=== PATIENT | male | born 1995 | race Hispanic/Latino ===

== ENCOUNTER 2022-08-27 04:41 | Emergency (ER) | payer OTHER, SELFPAY ==
[2022-08-27 04:42] VITALS: BP 127/97; PULSE 107; RESP 18; TEMP 36.1; O2SAT 97; BMI 43.0
[2022-08-27 05:29] LABS: Absolute Lymphocyte Count 2.73 X10^3/uL (0.83-4.51); Absolute Neutrophil Count 8.3 X10^3/uL (2.0-7.7); Basophil# 0.05 X10^3/uL; Basophil% 0.4 % (0-1); Eosinophil# 0.36 X10^3/uL; Hematocrit 47.5 % (40-54); Hemoglobin 16.4 g/dL (13.0-16.5); Lymphocyte # 2.73 X10^3/ul (0.83-4.51); Lymphocyte % 22.4 % (19-41); Mean Corp Hgb Conc 34.5 g/dL (32-36); Mean Corpuscular Hgb 29.7 pg (27.0-32.0); Mean Corpuscular Volume 86.1 fL (80-94); Mean Platelet Vol. 10.3 fl (6.2-12.0); Monocyte# 0.68 X10^3/uL; Monocyte% 5.6 % (0-10); NRBC Flagged by Analyzer 0 % (0-5); Neutrophil # 8.33 X10^3/uL (2.7-7.7); Neutrophil % 68.2 % (47-70); Platelet Count 287 K/mm3 (150-450); RBC Distribution Width CV 12.2 % (11.6-14.6); RBC Distribution Width SD 38.5 fl (35.1-43.9); Red Blood Count 5.52 M/mm3 (4.6-6.2); White Blood Count 12.2 K/mm3 (4.4-11.0)
--- NOTE | 2022-08-27 05:39 | EX.ED.DYSGE1 ---
HPI History of Present Illness Chief Complaint: Abd Pain Narrative Narrative: Patient is a 26-year-old male who is from [place] and then visiting his family. He states he arrived 3 days ago and was doing well. He ate Thanksgiving dinner and then a few hours later began with generalized abdominal discomfort. He states he had loose stool which has progressed to clear watery diarrhea. He does report a past history of a bacterial intestinal infection a few years ago which needed hospitalized for. 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 He states that he cannot get the diarrhea/loose stool under control and he also has concern for repeat infection as the symptoms remind him of the time he was hospitalized and therefore comes in for evaluation. He reports he has had an EGD and colonoscopy and denies any diagnosis of ulcerative colitis or Crohn's disease [facility] Medical History Fatty liver Rotator cuff arthropathy of right shoulder Home Medications dicyclomine 20 mg tablet 20 mg PO 4X/DAY PRN Abdominal bloating/spasm 7 days #28 tabs 08/27/22 [Rx Last Taken Unknown] diphenoxylate-atropine 2.5 mg-0.025 mg tablet (Lomotil) 1 tab PO 4X/DAY PRN PRN diarrhea 5 days #20 tabs 08/27/22 [Rx Last Taken Unknown] liraglutide (weight loss) 3 mg/0.5 mL (18 mg/3 mL) subcut pen injector (Saxenda) 3 mg subcut DAILY 08/27/22 [History Last Taken Unknown] ondansetron 4 mg disintegrating tablet 4 mg PO TID PRN PRN nausea and vomiting #21 tabs 08/27/22 [Rx Last Taken Unknown] Allergy/AdvReac Type Severity Reaction Status Date / Time No Known Allergies Allergy Verified 08/27/22 04:45 Surgical History (Updated 08/27/22 @ 04:49 by Sravanthi Dodson) H/O left knee surgery Social History Smoking Status: Former smoker ROS ROS ED Constitutional Constitutional ED: Denies chills or fever(s) ENT ENT ED: Denies sore throat Cardiovascular Cardiovascular: Denies chest pain Respiratory/Chest Respiratory/Chest: Denies cough or dyspnea Gastrointestinal Gastrointestinal: Reports abdominal pain, diarrhea and nausea; Denies vomiting Genitourinary Genitourinary ED: Denies dysuria Musculoskeletal Musculoskeletal: Reports myalgias Integumentary Denies rash Neurologic Neurologic: Denies headache(s) Hematologic/Lymphatic Hematologic/Lymphatic: Denies easy bleeding or easy bruising EXAM Physical Exam Const Vital Signs: 08/27/22 04:42 Temperature 97.0 F L Temperature Source Temporal Pulse Rate 107 H Respiratory Rate 18 Blood Pressure 127/97 H Blood Pressure Mean 107 Pulse Ox 97 Oxygen Delivery Method Room Air Positive well nourished, well developed and obese General Appearance ED: well developed Nutritional Appearance: obese HEENT Reports dry mucous membranes HEENT Narrative: Mucous membranes are slightly dry and tacky. No secondary changes in the posterior pharynx to suggest infection Mouth ED: Yes dry mucous membranes Mouth: dry mucous membranes Eyes PERRL and EOMs intact bilaterally General Eye ED: Negative for scleral icterus Neck supple Resp normal respiratory effort and clear to auscultation bilaterally Cardio regular rate and regular rhythm Rate: other Other Details: Radial pulses are +2-4 bilaterally are equal and symmetric GI non-distended GI Narrative: As many as soft and nondistended with hyperactive bowel sounds. There is mild diffuse pain on palpation without voluntary guarding or rigidity. No pulsatile mass or fluid wave. No increased tympany Auscultation: hyperactive bowel sounds Palpation: soft Extremity normal to inspection Neuro oriented x3 and CN's II-XII intact bilaterally Sensorium / Orientation: alert Psych mental status grossly normal Skin no rashes or lesions noted and skin turgor normal General Skin Exam: Negative for jaundice MDM MDM MDM Narrative Medical decision making narrative: Patient presented to the ER afebrile with a soft nonsurgical abdomen. Therefore I felt no need for emergent CT scan. Based on his symptoms I feel this is a viral gastroenteritis and will check for influenza and COVID as a cause as well as for electrolyte derangements and acute kidney injury based on his recurrent watery diarrhea. Lab work shows slight elevation to the white blood cell count as well as CRP consistent with a pro inflammatory response. However there is no severe electrolyte derangement or elevation to his creatinine to suggest RADHA. Liver enzymes are only slightly up and he does have a history of Rosenberg and his lipase is normal going against pancreatitis as cause of his symptoms. Patient was hydrated and given Lomotil and Bentyl and Toradol and reported feeling better. On reevaluation his abdomen remains soft and nonsurgical. Because of his previous admission for bacterial intestinal infection a stool sample was obtained. That will take multiple hours to result. At this time as his labs and vitals do not suggest systemic infection/septicemia and patient's had improvement of symptoms in the ER do not feel there is need to hold onto him until those result. Patient was informed that he will be notified if is positive for bacterial infection but you also have access to it on his outpatient MyChart. Therefore this time as patient's been rehydrated there is no signs of septicemia or acute kidney injury and his abdomen is soft and nonsurgical he can be treated symptomatically and discharged home Lab Data Attestation: I reviewed the patient's lab results. Labs: Laboratory Results - last 24 hr 08/27/22 08/27/22 05:25 05:25 WBC 12.2 H RBC 5.52 Hgb 16.4 Hct 47.5 MCV 86.1 MCH 29.7 MCHC 34.5 RDW Std Deviation 38.5 RDW Coeff of Hai 12.2 Plt Count 287 MPV 10.3 Immature Gran % (Auto) 0.400 Neut % (Auto) 68.2 Lymph % (Auto) 22.4 Pitt % (Auto) 5.6 Eos % (Auto) 3.0 Baso % (Auto) 0.4 Absolute Neuts (auto) 8.3 H Absolute Lymphs (auto) 2.73 Nucleated RBC % 0 Sodium 140 Potassium 4.0 Chloride 109 H Carbon Dioxide 26.0 Anion Gap 5 BUN 14 Creatinine 1.07 Estim Creat Clear Calc 116.84 Est GFR (MDRD) Af Amer 108 Est GFR (MDRD) Non-Af 90 BUN/Creatinine Ratio 13.1 Glucose 99 Calcium 8.8 Magnesium 2.1 Total Bilirubin 1.10 H Direct Bilirubin 0.17 AST 45 H ALT 127 H Alkaline Phosphatase 47 C-React Prot Ext Range 3.84 H Total Protein 7.9 Albumin 4.1 Globulin 3.8 Lipase 123 Discharge Plan Triage Chief Complaint: Abd Pain ED Provider: Raj Webb Dx/Rx/DC Orders Clinical Impression: Diarrhea, Mild dehydration, ROSENBERG (nonalcoholic steatohepatitis) Instructions: ED Dehydration (Adult), ED Diarrhea, Unknown Cause Prescriptions: New dicyclomine 20 mg tablet 20 mg PO 4X/DAY PRN (Reason: Abdominal bloating/spasm) 7 Days Qty: 28 0RF diphenoxylate-atropine [Lomotil] 2.5-0.025 mg tablet 1 tab PO 4X/DAY PRN PRN (Reason: diarrhea) 5 Days Qty: 20 0RF ondansetron 4 mg tablet,disintegrating 4 mg PO TID PRN PRN (Reason: nausea and vomiting) Qty: 21 0RF No Action Saxenda 3 mg/0.5 mL (18 mg/3 mL) Pen Injector 3 mg SUBCUT DAILY Primary Care Provider: Care Physician,No Primary Referrals: Stella Roberts MD [Med Staff - Manufacturing Development Engineer] - NOT,DEFINED [Non-Staff] - Activity Restrictions/Additional Instructions: Your exam and work-up today is consistent with mild dehydration and I feel that the symptoms abdominal pain/bloating with loose stool/diarrhea is related to a viral intestinal infection which is typically self-limited and will resolve in 3 to 7 days. Please keep yourself well-hydrated and check your MyChart to see if your stool study shows a bacterial cause. You should also be notified from the hospital if your test is positive. If you have worsening symptoms or any further concerns return for repeat evaluation. Disposition Disposition: Home, Self Care
[2022-08-27] MEDS: 0.9% Normal Saline 1,000 ML 999 ML IV (05:49)
[2022-08-27] MEDS: Dicyclomine 20 MG/2 ML Vial IM (05:49)
[2022-08-27] MEDS: Ketorolac 30 MG/ML Syringe IV (05:49)
[2022-08-27] MEDS: Diphenoxylate/Atrop 1 Tablet 2 TABLET PO (05:49)
[2022-08-27 05:56] LABS: AST(SGOT) 45 U/L (15-37); Alanine Aminotransfer ALT/SGPT 127 U/L (16-61); Albumin, Serum 4.1 g/dL (3.2-5.0); Alkaline Phosphatase 47 U/L (45-117); Anion Gap 5 (5-15); BUN 14 mg/dL (7-18); BUN/Creat Ratio 13.1 RATIO (10-20); Bilirubin, Direct 0.17 mg/dL (0.00-0.30); CRP 3.84 mg/L (0.0-3.0); Calcium,Total 8.8 mg/dL (8.5-10.1); Chloride 109 mmol/L (98-107); Creatinine, Serum 1.07 mg/dL (0.70-1.30); EST Glomerular Filtration Rate 90 mL/min (>60); Est Glom Filt Rate - Afr Amer 108 mL/min (>60); Estimated Creatinine Clearance 116.84 ml/min; Globulin 3.8 g/dL (2.2-4.2); Glucose 99 mg/dL (74-106); Lipase 123 U/L (73-393); Magnesium 2.1 mg/dL (1.6-2.6); Protein, Total 7.9 g/dL (6.4-8.2); Sodium Level 140 mmol/L (136-145)
[2022-08-27 07:04] VITALS: BP 135/78; PULSE 87; RESP 16; O2SAT 98
== END 2022-08-27 07:08 | disposition home or self-care (01) ==
PROVIDERS: Emergency Provider Emergency Medicine; Visit Provider Emergency Medicine
DX: R19.7 Diarrhea, unspecified (principal); E86.0 Dehydration; K75.81 Nonalcoholic steatohepatitis (NASH); Z87.891 Personal history of nicotine dependence
CPT/HCPCS: 80048; 80076; 83690; 83735; 85025; 86140; 87428; 87506; 96372; 96374; 99283; J7030; A4216